=== PATIENT | female | born 1995 | race Caucasian/White ===

== ENCOUNTER 2019-07-16 13:51 | Emergency (ER) | payer MEDICAID ==
[~2019-07-16] VITALS: Ht 162.6 cm; Wt 59.9 kg
[2019-07-16 13:57] VITALS: BP 145/88
--- NOTE | 2019-07-16 13:57 | NUR ---
PT AMBULATED TO BED 6.
--- NOTE | 2019-07-16 14:04 | NUR ---
23 PRESENTS TO ED REQUESTING HIV TESTING. PT STATES SHE HAD SEXUAL INTERCOURSE WITH HER BOYFRIEND LAST NIGHT; AFTERWARDS BOYFRIEND TOLD HER HE HAD BEEN TESTED FOR HIV AND HAD A POSITIVE PRELIMINARY TEST. PT DENIES ANY SYMPTOMS AT THIS TIME. STATES THE CONDOM SLIPPED OFF DURING INTERCOURSE AND IS VERY ANXIOUS AND TEARFUL AT THIS TIME. LACY CELAYA
--- NOTE | 2019-07-16 14:27 | NUR ---
Lab at bedside.
--- NOTE | 2019-07-16 14:38 | NUR ---
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
--- NOTE | 2019-07-16 14:50 | NUR ---
Patient discharged with v/s stable. Written and verbal after care instructions given and explained. Patient verbalized understanding. Ambulatory with steady gait. All questions addressed prior to discharge. Advised to follow up with PMD.
[2019-07-16 14:51] VITALS: BP 145/88
== END 2019-07-16 14:50 | disposition home or self-care (01) ==
LOC: MED 13:51
DX: J45.909 Unspecified asthma, uncomplicated (principal); Z20.2 Contact with and (suspected) exposure to infections with a predominantly sexual mode of transmission; Z88.1 Allergy status to other antibiotic agents
CPT/HCPCS: 36415; 81002; 81025; 86702; 86704; 86706; 86708; 86709; 86803; 87340; 87529; 99283